=== PATIENT | female | born 1965 | race Hispanic/Latino ===

== ENCOUNTER → 2017-05-12 | Outpatient (CLI) | payer MEDICARE | END | disposition home or self-care (01) | LOC: SHCH 11:51 | PROVIDERS: ATTEND Internal Medicine Cardiovascular Disease | DX: I20.9 Angina pectoris, unspecified (principal) | CPT/HCPCS: 93306 ==

== ENCOUNTER → 2017-05-17 | Outpatient (CLI) | payer MEDICARE ==
[~2017-05-17] MED LIST: REGADENOSON 0.4 MG/5 ML PF SYG IVP SCH
== END | disposition home or self-care (01) ==
LOC: SHCH 08:23
PROVIDERS: ATTEND Internal Medicine Cardiovascular Disease
DX: I20.9 Angina pectoris, unspecified (principal)
CPT/HCPCS: 78452; 93017; 96374; A9500 ×2; J2785

== ENCOUNTER 2017-06-22 17:22 | Emergency (ER) | payer MEDICARE ==
[2017-06-22] MEDS ORDERED: ONDANSETRON HCL 4 MG/2 ML VIAL ONE (17:44)
[2017-06-22] MEDS ORDERED: FAMOTIDINE/PF 20 MG/2 ML VIAL IV ONE (17:45)
[2017-06-22 18:08] LABS: APPEARANCE,URINE Clear (CLEAR); BASOPHILS % (AUTO) 0.9 % (0.0-5.0); BILIRUBIN,URINE Negative (NEGATIVE); COLOR,URINE Yellow (YELLOW); EOSINOPHILS % (AUTO) 1.9 % (0.0-8.0); GLUCOSE, URINE (UA) >=1000 mg/dL (NEGATIVE); HEMATOCRIT 40.9 % (36-48); KETONES,URINE Negative (NEGATIVE); LEUKOCYTE ESTERASE ,URINE Negative (NEGATIVE); LYMPHOCYTES % (AUTO) 14.5 % (21.0-51.0); MEAN CORPUSCULAR HEMOGLOBIN 28.1 pg (27.0-33.0); MEAN CORPUSCULAR VOLUME 82.6 fL (79-99); NEUTROPHILS % (AUTO) 77.7 % (40.0-77.0); NITRATE,URINE Negative (NEGATIVE); OCCULT BLOOD,URINE Negative (NEGATIVE); PH,URINE 5.5 (5.0-8.0); PLATELET COUNT (AUTO) 337 K/uL (130-400); PROTEIN,URINE Negative (NEGATIVE); RED BLOOD CELL COUNT(AUTO) 4.95 MIL/uL (4.00-5.50); RED CELL DISTRIBUTION WIDTH 13.2 % (11.0-15.5); UROBILINOGEN,URINE 0.2 mg/dL (0.2-1.0); WHITE BLOOD COUNT (AUTO) 15.7 K/uL (4.8-10.8)
[2017-06-22 18:12] LABS: HCG,QUAL RESULT NEGATIVE (NEGATIVE)
[2017-06-22 18:26] LABS: CREATININE 0.7 mg/dL (0.5-1.5); POTASSIUM 4.2 mmol/L (3.5-5.1)
[2017-06-22 18:30] LABS: ALBUMIN 3.2 g/dL (3.5-5.0); BILIRUBIN,DIRECT 0.1 mg/dL (0.0-0.3); BILIRUBIN,TOTAL 0.3 mg/dL (0.2-1.0); TOTAL PROTEIN, SERUM 6.9 g/dL (6.0-8.3)
[2017-06-22 18:41] LABS: BACTERIA,URINE Rare /HPF (None Seen); RBC,URINE 0-1 /HPF (0-1); SQUAMOUS EPITHELIAL CELL,UR Rare /LPF (0-2); WBC,URINE 0-1 /HPF (0-1)
[2017-06-22] MEDS ORDERED: SODIUM CHLORIDE 0.9% 1000ML 1,000 ML IV ONE (18:49)
[2017-06-22] MEDS ORDERED: INSULIN HUMULIN R 100 UNIT/ML 3ML ONE (18:50)
== END 2017-06-22 20:28 | disposition home or self-care (01) ==
LOC: EDH 17:22
DX: A08.39 Other viral enteritis (principal); E08.65 Diabetes mellitus due to underlying condition with hyperglycemia; E78.5 Hyperlipidemia, unspecified; J45.909 Unspecified asthma, uncomplicated; D72.829 Elevated white blood cell count, unspecified
CPT/HCPCS: 36415; 80048; 80076; 81001; 81025; 82948; 83690; 85025; 96361; 96365; 96366; 96375; 99285; J1815; J2405; J3490; J7030

== ENCOUNTER 2021-08-12 03:22 | Emergency (ER) | payer MEDICARE ==
[~2021-08-12] VITALS: Ht 157.5 cm; Wt 96.6 kg
[2021-08-12 04:12] LABS: APPEARANCE,URINE Clear (CLEAR); BILIRUBIN,URINE Negative (NEGATIVE); COLOR,URINE Yellow (YELLOW); GLUCOSE, URINE (UA) >=1000 mg/dL (NEGATIVE); KETONES,URINE Negative (NEGATIVE); LEUKOCYTE ESTERASE ,URINE Negative (NEGATIVE); NITRATE,URINE Negative (NEGATIVE); OCCULT BLOOD,URINE Negative (NEGATIVE); PH,URINE 5.5 (5.0-8.0); PROTEIN,URINE Negative (NEGATIVE)
[2021-08-12 04:19] LABS: BASOPHILS % (AUTO) 0.4 % (0.0-5.0); EOSINOPHILS % (AUTO) 1.2 % (0.0-8.0); HEMATOCRIT 40.5 % (36-48); LYMPHOCYTES % (AUTO) 20.4 % (21.0-51.0); MEAN CORPUSCULAR HEMOGLOBIN 27.1 pg (27.0-33.0); MEAN CORPUSCULAR HGB CONC 32.1 g/dL (32.0-36.0); MEAN CORPUSCULAR VOLUME 84.6 fL (79-99); MONOCYTES % (AUTO) 7.3 % (3.0-13.0); NEUTROPHILS % (AUTO) 70.3 % (40.0-77.0); PLATELET COUNT (AUTO) 343 K/uL (130-400); RED BLOOD CELL COUNT(AUTO) 4.79 MIL/uL (4.00-5.50); RED CELL DISTRIBUTION WIDTH 12.8 % (11.0-15.5); WHITE BLOOD COUNT (AUTO) 11.8 K/uL (4.8-10.8)
[2021-08-12 04:28] LABS: BACTERIA,URINE None Seen /HPF (None Seen); RBC,URINE None Seen /HPF (0-1); SQUAMOUS EPITHELIAL CELL,UR Rare /HPF (0-2); WBC,URINE None Seen /HPF (0-1); YEAST,URINE BUDDING None Seen /HPF (None Seen)
[2021-08-12] MEDS ORDERED: ONDANSETRON 4MG INJ IVP ONE (04:30)
[2021-08-12] MEDS ORDERED: METOCLOPRAMIDE 10 MG/2 ML VIAL IVP ONE (04:30)
[2021-08-12] MEDS ORDERED: PANTOPRAZOLE 40 MG/VIAL IVP ONE (04:30)
[2021-08-12] MEDS ORDERED: FAMOTIDINE 20MG VIAL IV ONE (04:30)
[2021-08-12] MEDS ORDERED: 0.9%NACL 1000ML 1,000 ML IV ONE (04:30)
[2021-08-12 04:43] LABS: CREATININE 0.6 mg/dL (0.5-1.5); POTASSIUM 4.1 mmol/L (3.5-5.1)
[2021-08-12 04:47] LABS: ALBUMIN 3.7 g/dL (3.5-5.0); BILIRUBIN,TOTAL 0.3 mg/dL (0.2-1.0); TOTAL PROTEIN, SERUM 7.6 g/dL (6.0-8.3)
[2021-08-12 05:18] VITALS: BP 120/74
[2021-08-12] MEDS ORDERED: ONDA4TAB10 PO (05:24)
[2021-08-12] MEDS ORDERED: METO-296 PO (05:24)
[2021-08-12] MEDS ORDERED: PANT40TA PO (05:24)
[2021-08-12] MEDS ORDERED: DICY20TA2 PO (05:24)
[2021-08-12] MEDS ORDERED: LIDOCAINE HCL 2% VISCOUS 15 ML UDCUP ONE (05:26)
[2021-08-12] MEDS ORDERED: DiphenhydrAMINE HCL 50 MG/ML VIAL ONE (05:26)
[2021-08-12] MEDS ORDERED: MAG/ALUM/SIMETH 30 ML UDCUP ONE (05:26)
[2021-08-12] MEDS ORDERED: KETOROLAC 30MG VIAL (30MG/ML) ONE (05:27)
[2021-08-12] MEDS ORDERED: DiphenhydrAMINE HCL 50 MG/ML VIAL IV ONE (05:30)
[2021-08-12] MEDS ORDERED: LIDOCAINE HCL 2% VISCOUS 15 ML UDCUP PO ONE (05:30)
[2021-08-12] MEDS ORDERED: KETOROLAC 30MG VIAL (30MG/ML) IVP ONE (05:30)
[2021-08-12] MEDS ORDERED: MAG/ALUM/SIMETH 30 ML UDCUP PO ONE (05:30)
== END 2021-08-12 06:02 | disposition home or self-care (01) ==
LOC: EDH 03:22
DX: K80.20 Calculus of gallbladder without cholecystitis without obstruction (principal); R10.11 Right upper quadrant pain; R10.13 Epigastric pain; E86.9 Volume depletion, unspecified; E11.9 Type 2 diabetes mellitus without complications; E78.00 Pure hypercholesterolemia, unspecified; Z88.6 Allergy status to analgesic agent; Z79.899 Other long term (current) drug therapy; Z98.890 Other specified postprocedural states
CPT/HCPCS: 36415; 76705; 80053; 81001; 83690; 84484; 85025; 93005; 96361; 96374; 96375; 99285; C9113; J1200; J1885; J2405; J2765; J3490; J7030

== ENCOUNTER → 2023-01-05 | Outpatient (CLI) | payer MEDICARE ==
[~2023-01-05] MED LIST changes: +DAPA10TA PO; +DICY20TA2 PO; +ERGO500093 PO; +GABA300C PO; +METO-296 PO; +ONDA4TAB10 PO; +PANT40TA PO; -REGADENOSON 0.4 MG/5 ML PF SYG IVP SCH; +ROSU20TA73 PO; +SUMA25TA9 PO; +TIRZ5PEN SQ; +VITA1CAP85 PO
== END | disposition home or self-care (01) ==
LOC: RAH 09:14
PROVIDERS: ATTEND Family Medicine
DX: Z01.818 Encounter for other preprocedural examination (principal)
CPT/HCPCS: 71046

== ENCOUNTER → 2023-11-03 | Outpatient (CLI) | payer MEDICARE ==
[~2023-11-03] MED LIST changes: +ACET-2079 PO; +ASPI-1026 PO; +CYCL-309 PO; -DICY20TA2 PO; +GABA100C PO; -GABA300C PO; +LEVO750T68 PO; -METO-296 PO; -ONDA4TAB10 PO; -PANT40TA PO
== END | disposition home or self-care (01) ==
LOC: RAH 11:44
PROVIDERS: ATTEND Physician Assistant
DX: Z01.818 Encounter for other preprocedural examination (principal)
CPT/HCPCS: 71046

== ENCOUNTER → 2024-02-01 | Outpatient (CLI) | payer OTHER, MEDICARE ==
[~2024-02-01] MED LIST changes: +ALBU18HF7 IH; +ASCO500C18 PO
== END | disposition home or self-care (01) ==
LOC: RAH 12:07
PROVIDERS: ATTEND Family Medicine
DX: M47.26 Other spondylosis with radiculopathy, lumbar region (principal); M54.32 Sciatica, left side
CPT/HCPCS: 72100

== ENCOUNTER 2024-04-22 19:06 | Emergency (ER) | payer OTHER, MEDICARE ==
[~2024-04-22] VITALS: Ht 157.5 cm; Wt 97.2 kg
[~2024-04-22 19:06] MED LIST changes: -ASPI-1026 PO; -CYCL-309 PO; -DAPA10TA PO; -GABA100C PO; -LEVO750T68 PO; -ROSU20TA73 PO; +ROSU20TA98 PO; -VITA1CAP85 PO
--- NOTE | 2024-04-22 19:10 | NUR ---
COVID, FLU AND STREP SWABS COLLECTED AND SENT [facility] PROVIDED
--- NOTE | 2024-04-22 19:25 | ERN ---
ED Note History of Present Illness Stated Complaint: HEADACHE, BODYACHES,N/V/CHILLS, LEFT LOWER LEG ASH Chief Complaint: Multiple Complaints Time Seen by MD: 19:10 Time Seen by Midlevel: 19:15 Dictation: This 58-year-old female coming in for complaints of body aches, headache, left gluteal pain that radiates down her leg all started on . Denies having any fever, cough, congestion. Denies any medical or surgical history. Allergies: Coded Allergies: No Known Drug Allergies (Unverified Allergy, Unknown, 02/01/24) Home Meds Active Scripts Acetaminophen with Codeine (Acetaminophen-Cod #3 Tablet) 300 Mg-30 Mg Tablet, 1 EACH PO Q4HPRN PRN for PAIN for 7 Days, #42 TAB 0 Refills Prov:NATTY TUCKER MD 02/03/24 Reported Medications Albuterol Sulfate (Ventolin Hfa) 90 Mcg Hfa.aer.ad, 2 PUFF IH AD PRN for SHORTNESS OF BREATH, INHALER 02/03/24 Ergocalciferol (Vitamin D2) (Vitamin D2) 1,250 Mcg (17751 Unit) Capsule, 1250 MCG PO QWEEK, CAP 02/01/24 Ascorbic Acid (Vitamin C) 500 Mg Capsule, 500 MG PO DAILY, CAP 02/01/24 Rosuvastatin Calcium (Rosuvastatin Calcium) 20 Mg Tablet, 20 MG PO HS, TAB 01/07/23 Sumatriptan Succinate (Sumatriptan Succinate) 25 Mg Tablet, 25 MG PO HS, TAB 01/07/23 Tirzepatide (Mounjaro) 5 Mg/0.5 Ml Pen.injctr, 5 MG SQ QWEEK 01/07/23 Past Medical History Past Medical History: Asthma, Diabetes-Type II, High Cholesterol Surgical History: Hysterectomy, Tonsillectomy, Cholecystectomy, BTL Surgical History Other: HERNIA X 3, TUMOR RT SHOULDER, TOTAL KNEE BILATERAL Social History: Negative, Lives with family Review of System Dictation Constitutional: Negative for fever,chills, and weight loss complaining of body aches Eyes: Negative for injury, pain,redness, and discharge ENT: Negative for injury,pain or swelling Cardiovascular: Negative for chest pain, palpitations, and edema Respiratory: Negative for shortness of breath, cough, and wheezing, Abdomen/GI: Negative for abdominal pain, nausea, vomiting, diarrhea, and constipation Back: Negative for injury and pain : Negative for injury, bleeding and discharge MS/Extremity: Negative for injury and deformity left extremity pain lower leg Skin: Negative for rash, and discoloration Neuro: Negative for headache, weakness, numbness, tingling, and seizure Psych: Negative for suicide ideation, homicidal ideation, and hallucinations Review of Systems: was completed Initial Vital Sign VS Vital Signs Date Time Temp Pulse Resp B/P (MAP) Pulse Ox O2 Delivery O2 Flow Rate FiO2 04/22/24 19:08 97.9 86 16 125/77 97 Room Air 04/22/24 20:45 0 21 Physical Exam Dictation General: awake, alert, NAD Head/Face: Normocephalic, atraumatic Eyes: PERRL, EOMI, vision at baseline ENT: oral cavity clear, TMs clear, no signs of infection Neck: Trachea midline, supple, no nuchal rigidity Cardiovascular: RRR, normal S1/S2, No MRGs, no JVD Respiratory: CTAB, no respiratory distress, No rales or wheezes Abdomen: Soft, non-tender, non-distended, normal bowel sounds, no guarding or rebound. Skin: Warm, dry, normal turgor, no rash MS/Extremity: Pulses equal, no cyanosis, neurovascular intact, FROM Neuro: COAx4, GCS 15, strength 5/5, CN 2-12 intact, normal cerebellar exam, normal gait, Psych: Normal behavior, mood, and affect normal Results (Laboratory/Radiology) Laboratory/Radiology Laboratory Tests Test 04/22/24 19:10 04/22/24 20:36 Influenza Type A Antigen Negative For Type A Influenza Type B Antigen Negative For Type B SARS-CoV-2, RNA, NAAT NEGATIVE SARS CoV-2 Group A Streptococcus Rapid negative (NEGATIVE) Urine Color YELLOW (YELLOW) Urine Appearance CLOUDY (CLEAR) H Urine pH 5.5 (5.0-8.0) Urine Specific [place] 1.022 (1.001-1.031) Urine Protein 30 mg/dL (NEGATIVE) H Urine Glucose (UA) 30 mg/dL (NEGATIVE) H Urine Ketones 10 mg/dL (NEGATIVE) H Urine Occult Blood NEGATIVE (NEGATIVE) Urine Nitrate NEGATIVE (NEGATIVE) Urine Bilirubin NEGATIVE mg/dL (NEGATIVE) Urine Urobilinogen 2.0 mg/dL (0.2-1.0) H Urine Leukocyte Esterase 250 Favio/uL (NEGATIVE) H Urine RBC 6-10 /HPF (0-1) H Urine WBC 6-10 /HPF (0-1) H Urine Squamous Epithelial Cells MOD /HPF (0-2) Urine Non-Squamous Epithelial Cells 1 /HPF (0-2) Urine Bacteria None /HPF (None Seen) Urine Hyaline Casts 2-5 /LPF (0-1 /LPF) H Labs Reviewed?: Yes ED Course ED Course Orders Procedure Category Date Status Time Covid Rna Naat LAB 04/22/24 Complete 19:08 Influenza Type A & B, LAB 04/22/24 Complete Rapid 19:08 Rapid (Group A Strep) LAB 04/22/24 Complete 19:08 Urinalysis Profile LAB 04/22/24 Complete 19:08 Ketorolac PHA 04/22/24 Complete Tromethamine 15mg/Ml 19:30 Hydrocodone/Apap PHA 04/22/24 Complete 5/325 ([place] 5/325mg) 19:22 Lidocaine (Lidocaine PHA 04/22/24 Complete Patch 4%) 19:22 Culture Urine JEANE 04/22/24 In Process 21:08 Current Medications Medications (Trade) Dose Ordered Sig/Kaila Route PRN Reason Start Time Stop Time Status Last Admin Dose Admin Acetaminophen/ Hydrocodone Bitart (NORco 5/325MG) 1 tab ONCE STAT PO 04/22/24 19:22 04/22/24 19:23 DC 04/22/24 21:06 Ketorolac Tromethamine (toRADol) 15 mg ONCE ONCE IM 04/22/24 19:30 04/22/24 19:31 DC 04/22/24 21:07 Lidocaine (Lidocaine Patch 4%) 1 each ONCE STAT TP 04/22/24 19:22 04/22/24 19:23 DC 04/22/24 21:07 Vital Signs Date Time Temp Pulse Resp B/P (MAP) Pulse Ox O2 Delivery O2 Flow Rate FiO2 04/22/24 20:45 97.9 86 16 125/77 98 Room Air* 0 21 04/22/24 19:08 97.9 86 16 125/77 97 Room Air Medical Decision Making MDM MDM: This 58-year-old female coming in for complaints of body aches, headache, left gluteal pain that radiates down her leg all started on . Denies having any fever, cough, congestion. Denies any medical or surgical history. Patient's serologies negative, UA shows no evidence of urinary tract infection. Discussed findings with patient. Educated more than like she has a viral s yndrome and sciatica nerve pain. Educated that I will discharge him with pain medication and she needs to follow up with PCP in 1-2 days. Educated to return to the ER if symptoms worsen. Patient verbalized understanding, answered all questions. Differential diagnosis: Influenza, COVID, UTI, sciatica Rationale: Tests considered and ordered secondary to shared decision making inc lude: Previous outside records reviewed: Old ER visits. Risk of complication and/or morbidity or mortality of patient management: None Medications-Per medication reconciliation Need for hospitalization: Patient does not meet criteria for hospitalization. Need for emergency major/minor surgery: No There are no social concerns with this patient. Prescription drug management Prescriptions will include symptomatic care Patient's prior external medical records from other ER visits were reviewed by me as indicated. Prior testing and results from previous visits were reviewed. Prior tests were taken into account with medical decision making and resource utilization, independent historian/historians were used to obtain complete medical history. I independently interpreted the test that were performed, results were reviewed by me and considered findings on radiology if ordered. Medical management and examination interpretation discussions were had by me with other qualified healthcare professionals as indicated for the patient's care. DX & DISP Disposition: Discharge Departure Impression: Primary Impression: Viral syndrome Additional Impression: Sciatic leg pain Condition: Stable Scripts Naproxen (Naproxen) 500 Mg Tablet 1 TAB PO BID PRN for PAIN for 7 Days, #60 TAB 0 Refills Prov: FILIBERTO PLEITEZ LABOR RELATIONS WORKER 04/22/24 Lidocaine (Lidocaine) 5 % Adh..patch 1 PATCH TP DAILY for 7 Days, #7 PATCH 0 Refills Prov: PLEITEZFILIBERTO CURRY LABOR RELATIONS WORKER 04/22/24 Additional Instructions: Your swabs are negative for COVID and influenza. Urine shows not show any evidence of urinary tract infection. More than likely you have a viral syndrome, you can take [id number] symptomatic control. Tylenol for fever and pain. And they prescribed to you lidocaine patch and naproxen for your sciatica nerve pain. Follow up with PCP in 1-2 days, return to the ER symptoms worsen. Referrals: LEIGH ANN LANDRY M.D. (PCP) Time of Disposition: 21:26 I have reviewed the case, and I agree with, Diagnosis and Plan FILIBERTO PLEITEZ NP Apr 22, 2024 19:25
[2024-04-22 19:46] LABS: RAPID GROUP A STREP negative (NEGATIVE)
[2024-04-22 19:51] LABS: SARS-CoV-2, RNA, NAAT NEGATIVE SARS CoV-2 (NEGATIVE)
[2024-04-22 19:56] LABS: INFLUENZA TYPE A Negative For Type A (NEGATIVE); INFLUENZA TYPE B Negative For Type B (NEGATIVE)
[2024-04-22 20:45] VITALS: BP 125/77; PULSE 86; RESP 16; TEMP 97.8; O2SAT 98
[2024-04-22] MEDS: HYDROcodone/APAP 5/325 1 TAB TABLET PO STA (21:06)
[2024-04-22 21:07] LABS: ADD UA MICROSCOPIC YES; APPEARANCE,URINE CLOUDY (CLEAR); BILIRUBIN,URINE NEGATIVE (NEGATIVE); COLOR,URINE YELLOW (YELLOW); GLUCOSE, URINE (UA) 30 mg/dL (NEGATIVE); KETONES,URINE 10 mg/dL (NEGATIVE); LEUKOCYTE ESTERASE ,URINE 250 Leu/uL (NEGATIVE); NITRATE,URINE NEGATIVE (NEGATIVE); OCCULT BLOOD,URINE NEGATIVE (NEGATIVE); PH,URINE 5.5 (5.0-8.0); PROTEIN,URINE 30 mg/dL (NEGATIVE)
[2024-04-22] MEDS: LIDOCAINE 4% ADH..PATCH TP STA (21:07)
[2024-04-22] MEDS: ketOROlac 15MG/ML VIAL (15MG/ML) IM ONE (21:07)
[2024-04-22 21:12] LABS: MUCUS,URINE MANY LPF (None Seen); NON-SQUAMOUS EPITHELIAL CELL 1 /HPF (0-2); SQUAMOUS EPITHELIAL CELL,UR MOD /HPF (0-2)
[2024-04-22] MEDS ORDERED: LIDO700A30 TP (21:25)
[2024-04-22] MEDS ORDERED: NAPR-1023 PO (21:25)
[2024-04-22] MEDS: Solu-medROL 125MG VIAL IM STA (21:47)
== END 2024-04-22 21:55 | disposition home or self-care (01) ==
LOC: EDH 19:06
DX: B34.9 Viral infection, unspecified (principal); M54.32 Sciatica, left side; E11.9 Type 2 diabetes mellitus without complications; E78.00 Pure hypercholesterolemia, unspecified; J45.909 Unspecified asthma, uncomplicated; Z20.822 Contact with and (suspected) exposure to COVID-19; Z79.85 Long-term (current) use of injectable non-insulin antidiabetic drugs; Z90.49 Acquired absence of other specified parts of digestive tract; Z90.710 Acquired absence of both cervix and uterus
CPT/HCPCS: 99284; 87635; 87086; 87880; 87804 ×2; 81001; 96372 ×2; J2919; J1885

== ENCOUNTER 2024-06-08 14:38 | Emergency (ER) | payer OTHER, MEDICARE ==
[~2024-06-08] VITALS: Ht 157.5 cm; Wt 95.7 kg
[~2024-06-08 14:38] MED LIST changes: +LIDO700A30 TP; +NAPR-1023 PO
--- NOTE | 2024-06-08 14:51 | ERN ---
ED Note History of Present Illness Stated Complaint: NAUSEA,VOMITTING,MULTIPLE COMPLAINTS Chief Complaint: Chest Pain Time Seen by MD: 14:42 Dictation: PATIENT IS A 58-YEAR-OLD FEMALE COMING IN TODAY WITH COMPLAINTS OF LEFT FLANK PAIN THAT RADIATES TO HER PELVIC AREA WITH NAUSEA VOMITING ONSET TWO DAYS PRIOR TO ARRIVAL. SHE SAID SHE HAS HAD NO FEVER NO CHILLS NO DIARRHEA. ALSO STATES SHE IS HAVING SOME CHEST PAIN BUT DOES NOT RADIATE. PATIENT HAS A HISTORY OF DIABETES HYPERTENSION IS NOT COMPLIANT WITH HER BLOOD SUGAR CHECKS HOWEVER STATES HER LAST A1C WAS 9.5. SHE HAS NOT BEEN TO SEE HER PRIMARY CARE DOCTOR. ALSO SHE STATES SHE HAS NUMBNESS AND TINGLING TO HER BILATERAL UPPER EXTREMITIES. NIH IS 0, GAIT IS STEADY TO TRIAGE Allergies: Coded Allergies: No Known Drug Allergies (Unverified Allergy, Unknown, 02/01/24) Home Meds Active Scripts Amoxicillin/Potassium Clav (Amox Tr-K Clv 875-125 mg Tab) 875 Mg-125 Mg Tablet, 1 EACH PO BID for 7 Days, #14 TAB 0 Refills Prov:SERJIO MALHOTRA VACCINE CUSTOMER REPRESENTATIVE 06/08/24 Ibuprofen (Ibuprofen 800 mg Tab) 800 Mg Tab, 800 MG PO Q8H PRN for fever or pain, #30 TAB 0 Refills Prov:SERJIO MALHOTRA VACCINE CUSTOMER REPRESENTATIVE 06/08/24 Naproxen (Naproxen) 500 Mg Tablet, 1 TAB PO BID PRN for PAIN for 7 Days, #60 TAB 0 Refills Prov:FILIBERTO PLEITEZ VACCINE CUSTOMER REPRESENTATIVE 04/22/24 Lidocaine (Lidocaine) 5 % Adh..patch, 1 PATCH TP DAILY for 7 Days, #7 PATCH 0 Refills Prov:FILIBERTO PLEITEZ VACCINE CUSTOMER REPRESENTATIVE 04/22/24 Acetaminophen with Codeine (Acetaminophen-Cod #3 Tablet) 300 Mg-30 Mg Tablet, 1 EACH PO Q4HPRN PRN for PAIN for 7 Days, #42 TAB 0 Refills Prov:NATTY TUCKER MD 02/03/24 Reported Medications Albuterol Sulfate (Ventolin Hfa) 90 Mcg Hfa.aer.ad, 2 PUFF IH AD PRN for SHORTNESS OF BREATH, INHALER 02/03/24 Ergocalciferol (Vitamin D2) (Vitamin D2) 1,250 Mcg (93497 Unit) Capsule, 1250 MCG PO QWEEK, CAP 02/01/24 Ascorbic Acid (Vitamin C) 500 Mg Capsule, 500 MG PO DAILY, CAP 02/01/24 Rosuvastatin Calcium (Rosuvastatin Calcium) 20 Mg Tablet, 20 MG PO HS, TAB 01/07/23 Sumatriptan Succinate (Sumatriptan Succinate) 25 Mg Tablet, 25 MG PO HS, TAB 01/07/23 Tirzepatide (Mounjaro) 5 Mg/0.5 Ml Pen.injctr, 5 MG SQ QWEEK 01/07/23 Past Medical History Past Medical History: Asthma, Diabetes-Type II, High Cholesterol Surgical History: Hysterectomy, Tonsillectomy, Cholecystectomy, BTL Surgical History Other: HERNIA X 3, TUMOR RT SHOULDER, TOTAL KNEE BILATERAL Social History: Negative, Lives with family History: Not Applicable RN Note Reviewed/Agreed w/PFSH: Yes Review of System Dictation CONSTITUTIONAL: NEGATIVE EXCEPT FOR HPI HEAD/FACE: NEGATIVE EXCEPT FOR HPI EENT: NEGATIVE EXCEPT FOR HPI RESPIRATORY: NEGATIVE EXCEPT FOR HPI AND CHEST PAIN GASTROINTESTINAL/ABDOMINAL: NEGATIVE EXCEPT FOR HPI LEFT FLANK PAIN THAT RADIATES TO THE SUPRAPUBIC CARE WITH NAUSEA VOMITING GENITOURINARY: NEGATIVE EXCEPT FOR HPI MUSCULOSKELETAL: NEGATIVE EXCEPT FOR HPI INTEGUMENTARY: NEGATIVE EXCEPT FOR HPI NEUROLOGICAL/PSYCH: NEGATIVE EXCEPT FOR HPI HEMATOLOGIC/LYMPHATIC: NEGATIVE EXCEPT FOR HPI ALL SYSTEMS NEGATIVE, EXCEPT NOTED ABOVE. 13 POINT REVIEW OF SYSTEMS ASSESSED AND ALL NEGATIVE EXCEPT FOR ABOVE. Initial Vital Sign VS Vital Signs Date Time Temp Pulse Resp B/P (MAP) Pulse Ox O2 Delivery O2 Flow Rate FiO2 06/08/24 14:43 98.4 76 16 145/74 96 Room Air 0 06/08/24 17:43 21 Physical Exam Dictation VITAL SIGNS REVIEWED GENERAL APPEARANCE: ALERT, ORIENTED X 3, MODERATE ACUTE DISTRESS, WELL DEVELOPED, NOURISHED. OBESE HEAD AND FACE: NON-TRAUMATIC. EYES: PERRL, PINK CONJUNCTIVAS, EYELID NO TRAUMA, ANTERIOR CHAMBER WITH ARCUS SENILIS. EARS: PINNAS INTACT AND NO SIGNS OF TRAUMA OR ERYTHEMA EAR CANALS CLEAR AND NO DISCHARGE TM NO ERYTHEMA NOSE: NO DISCHARGE, NO BLEEDING. OROPHARYNX: MOUTH NORMAL, TONGUE PINK, PHARYNX CLEAR,NO ERYTHEMA, TONSILS NO EXUDATES, NO ABSCESSES NOTED, MUCOUS ME MBRANE MOIST NECK: SUPPLE, NON-TENDER, NO THYROMEGALY, NO MASSES, NO JVD, NO BRUITS BREAST:DEFERRED CHEST:NO TENDERNESS, NO CREPITUS, NO PARADOXICAL MOVEMENT, NO RETRACTIONS LUNGS:CLEAR, WELL-VENTILATED, SYMMETRIC, NO RALES, NO WHEEZING, NO RHONCHI, NO STRIDOR, GOOD BREATH SOUNDS BILATERALLY HEART: REGULAR RATE, REGULAR RHYTHM, NO MURMUR, NO GALLOPS VASCULAR: NO PERIPHERAL EDEMA, ABDOMEN: SOFT, POSITIVE BOWEL SOUNDS, NONDISTENDED, NO GUARDING, NONTENDER, NO REBOUND, NO MASSES NO HEPATOMEGALY, NO SPLENOMEGALY, NO ENCINAS'S SIGN, NO HERNIAS. NEGATIVE CVAT RECTAL: DEFERRED GENITAL: DEFERRED NEUROLOGICAL: NORMAL SPEECH, MOTOR FUNCTION INTACT, SENSORY FUNCTION INTACT MUSCULOSKELETAL: NECK NONTENDER, FULL RANGE OF MOTION, DIFFUSE LUMBOSACRAL PAIN TENDERNESS., FULL RANGE OF MOTION, EXTREMITIES: NONTENDER, FULL RANGE OF MOTION SKIN: COLOR PINK, DRY, NO TURGOR, NO RASH, NO LACERATIONS, NO ABRASIONS, NO CONTUSIONS. LYMPHATIC: DEFERRED Results (Laboratory/Radiology) Laboratory/Radiology Laboratory Tests Test 06/08/24 14:58 06/08/24 17:12 White Blood Count 12.9 K/uL (4.8-10.8) H Red Blood Count 4.63 MIL/uL (4.00-5.50) Hemoglobin 13.0 g/dL (12.0-16.0) Hematocrit 39.4 % (36-48) Mean Corpuscular Volume 85.1 fL (79-99) Mean Corpuscular Hemoglobin 28.1 pg (27.0-33.0) Mean Corpuscular Hemoglobin Concent 33.0 g/dL (32.0-36.0) Red Cell Distribution Width 13.0 % (11.0-15.5) Platelet Count 373 K/uL (130-400) Mean Platelet Volume 10.8 fL (7.5-10.5) H Immature Granulocyte % (Auto) 0.9 % (0-1) Neutrophils (%) (Auto) 77.8 % (40.0-77.0) H Lymphocytes (%) (Auto) 13.9 % (21.0-51.0) L Monocytes (%) (Auto) 6.1 % (3.0-13.0) Eosinophils (%) (Auto) 1.0 % (0.0-8.0) Basophils (%) (Auto) 0.3 % (0.0-5.0) Neutrophils # (Auto) 10.0 K/uL (1.8-7.7) H Lymphocytes # (Auto) 1.8 K/uL (1.0-4.8) Monocytes # (Auto) 0.8 K/uL (0.1-1.0) Eosinophils # (Auto) 0.13 K/uL (0.00-0.70) Basophils # (Auto) 0.04 K/uL (0.00-0.20) Absolute Immature Granulocyte (auto 0.11 K/uL (0-1) Nucleated Red Blood Cells 0.0 % (0.0-0.19) Sodium Level 138 mmol/L (136-145) Potassium Level 3.8 mmol/L (3.5-5.1) Chloride Level 101 mmol/L (101-111) Carbon Dioxide Level 35 mmol/L (21-32) H Blood Urea Nitrogen 13 mg/dL (7-18) Creatinine 0.7 mg/dL (0.5-1.0) Glomerular Filtration Rate Calc 101 mL/min (>90) Random Glucose 165 mg/dL (70-105) H Total Calcium 9.2 mg/dL (8.5-10.1) Troponin I High Sensitivity < 4 ng/L (4-50) L Lipase 39 U/L (16-77) Urine Color LIGHT-YELLOW (YELLOW) Urine Appearance CLOUDY (CLEAR) H Urine pH 8.0 (5.0-8.0) Urine Specific [place] 1.014 (1.001-1.031) Urine Protein 20 mg/dL (NEGATIVE) H Urine Glucose (UA) NEGATIVE mg/dL (NEGATIVE) Urine Ketones NEGATIVE mg/dL (NEGATIVE) Urine Occult Blood NEGATIVE (NEGATIVE) Urine Nitrate NEGATIVE (NEGATIVE) Urine Bilirubin NEGATIVE mg/dL (NEGATIVE) Urine Urobilinogen 2.0 mg/dL (0.2-1.0) H Urine Leukocyte Esterase 500 Favio/uL (NEGATIVE) H Urine RBC 2-5 /HPF (0-1) H Urine WBC TNTC /HPF (0-1) H Urine Squamous Epithelial Cells FEW /HPF (0-2) Urine Non-Squamous Epithelial Cells 2 /HPF (0-2) Urine Bacteria RARE /HPF (None Seen) CT ABDOMEN/PELVIS W/O CONTRAST HISTORY: Right flank pain COMPARISON: None TECHNIQUE: Multiple sequential axial images of the abdomen and pelvis were obtained from the dome of the diaphragm through symphysis pubis. Patient was not given contrast through intravenous route. Oral contrast was not given. FINDINGS: No pleural effusion is seen bilaterally. There is no evidence of parenchymal disease or pulmonary nodule of the visualized lower lungs. Degenerative changes of the thoracolumbar spine are present. The heart is not enlarged. Liver is enlarged measuring 19 cm. There fatty changes of the liver are noted. Postcholecystectomy changes are seen. There is periumbilical hernia with fat content. Adjacent fat stranding is seen may be related to incarcerated hernia There is diverticulosis. No bowel obstruction is seen. The liver, spleen, adrenal glands and pancreas are unremarkable. There is no evidence of hydronephrosis bilaterally. No evidence of renal stone is seen. Fecal. Is seen in the colon. There are normal size retroperitoneal and mesenteric lymph nodes. No ascites is seen. Atherosclerotic changes are present. Uterus has been removed. Pelvic sidewalls are symmetric bilaterally. Bladder is moderately distended with apparent wall thickening. IMPRESSION: 1. There is periumbilical hernia with fat content. Adjacent fat stranding is seen may be related to incarcerated hernia There is diverticulosis. No bowel obstruction is seen. Labs Reviewed?: Yes EKG: (+) NSR EKG Comment: EKG NORMAL SINUS RHYTHM/HEART RATE 73/AXIS NORMAL/NO ECTOPY ED Course ED Course Orders Procedure Category Date Status Time Cbc With Differential LAB 06/08/24 Complete 14:47 Troponin I High LAB 06/08/24 Complete Sensitivity 14:47 Urinalysis Profile LAB 06/08/24 Complete 14:47 12 Lead Ekg Tracing- EKG 06/08/24 Logged Technical 14:47 0.9%Nacl 1000ml (Ns PHA 06/08/24 Complete 1000ml) 15:00 Ketorolac PHA 06/08/24 Complete Tromethamine 30mg/Ml 15:00 Ondansetron 4mg Inj PHA 06/08/24 Complete (Zofran 4mg Inj) 15:00 Lipase LAB 06/08/24 Complete 14:47 Basic Metabolic Panel LAB 06/08/24 Complete 14:47 Morphine 4mg Syg PHA 06/08/24 Complete (Morphine 4mg Syg) 17:00 Ondansetron 4mg Inj PHA 06/08/24 Complete (Zofran 4mg Inj) 17:00 Ct Abdomen/Pelvis W/O CT 06/08/24 Resulted Contrast 16:47 Culture Urine JEANE 06/08/24 In Process 17:45 Ceftriaxone 1g Vial PHA 06/08/24 Complete (Rocephine 1g Inj) 18:00 Current Medications Medications (Trade) Dose Ordered Sig/Kaila Route PRN Reason Start Time Stop Time Status Last Admin Dose Admin Ceftriaxone Sodium (ROCEphine 1G INJ) 1 gm ONCE ONCE IVPB 06/08/24 18:00 06/08/24 18:01 DC Ketorolac Tromethamine (toRADol) 30 mg ONCE ONCE IVP 06/08/24 15:00 06/08/24 15:01 DC 06/08/24 16:09 Morphine Sulfate (morPHINE 4MG SYG) 4 mg ONCE ONCE IVP 06/08/24 17:00 06/08/24 17:01 DC 06/08/24 17:34 Ondansetron HCl (zoFRAN 4MG INJ) 4 mg ONCE ONCE IVP 06/08/24 15:00 06/08/24 15:01 DC 06/08/24 16:09 Ondansetron HCl (zoFRAN 4MG INJ) 4 mg ONCE ONCE IVP 06/08/24 17:00 06/08/24 17:01 DC 06/08/24 17:34 Sodium Chloride 1,000 ml @ 0 mls/hr ONCE ONCE IV 06/08/24 15:00 06/08/24 15:01 DC 06/08/24 16:09 Vital Signs Date Time Temp Pulse Resp B/P (MAP) Pulse Ox O2 Delivery O2 Flow Rate FiO2 06/08/24 17:43 71 11 127/57 98 Room Air* 0 21 06/08/24 14:43 98.4 76 16 145/74 96 Room Air 0 1854/SPOKE WITH general surgery and discussed CT findings. He states he was not necessarily concerned about this in light of the fact that there is no reducible mass nor is there focal abdominal tenderness. He recommends treating the urinary tract infection and referred to his office and he will be glad to discuss her her hernia. HEART Score Response (Comments) Value History: Low suspicion (0) 0 Age: 45-65yrs (+1) 1 Risk Factors: 1-2 risk factors (+1) 1 Initial Troponin: Normal limit (0) 0 Total 2 Medical Decision Making MDM MDM: Differential diagnosis: UTI/pyelonephritis/urolithiasis/ureteral colic/UTI/ electrolyte imbalance/dehydration Rationale: Tests considered and ordered secondary to shared decision making include: EKG/labs/radiology Previous outside records reviewed: Old ER visits. Risk of complication and/or morbidity or mortality of patient management: None Medications-Per medication reconciliation Need for hospitalization: Patient does not meet criteria for hospitalization. No Need for emergency major/minor surgery: No There are no social concerns with this patient. Prescription drug management Augmentin/ibuprofen, we will be referred to General surgery Prescriptions will include symptomatic care Patient's prior external medical records from other ER visits were reviewed by me as indicated. Prior testing and results from previous visits were reviewed. Prior tests were taken into account with medical decision making and resource utilization, independent historian/historians were used to obtain complete medical history. I independently interpreted the test that were performed, results were reviewed by me and considered findings on radiology if ordered. Medical management and examination interpretation discussions were had by me with other qualified healthcare professionals as indicated for the patient's care. DX & DISP Disposition: Discharge Departure Impression: Primary Impression: Acute urinary tract infection Additional Impressions: Uncontrolled diabetes mellitus, Atypical chest pain, Low back pain with sciatica Condition: Stable Scripts Amoxicillin/Potassium Clav (Amox Tr-K Clv 875-125 mg Tab) 875 Mg-125 Mg Tablet 1 EACH PO BID for 7 Days, #14 TAB 0 Refills Prov: SERJIO MALHOTRA VACCINE CUSTOMER REPRESENTATIVE 06/08/24 Ibuprofen (Ibuprofen 800 mg Tab) 800 Mg Tab 800 MG PO Q8H PRN for fever or pain, #30 TAB 0 Refills Prov: SERJIO MALHOTRA VACCINE CUSTOMER REPRESENTATIVE 06/08/24 Additional Instructions: Follow-up with primary care provider in 1 to 2 days. Take medications as directed here in the emergency room. Okay to continue home medications unless otherwise discussed during your visit in the emergency room today. Return to your nearest emergency room if symptoms worsen or if there is no improvement. Call 911 if you need immediate assistance. Take Tylenol or Motrin [id number] as needed and if no contraindications are present. Increase oral hydration. A wound culture or urine culture was ordered here in the em ergency room department please follow-up with primary care provider and advise them to get repeat ports from our facility. If you had any Tylor wrap/splints that were applied here, please do not remove them until you see your primary care or specialty. Take antibiotics as directed until gone., take ibuprofen with food as directed until gone. No lifting greater than 10 lb, follow up with the general surgeon in the next 2-3 days for your umbilical hernia. Also follow up with your primary care doctor next week for management of your low back pain and sciatica. Referrals: JESSENIA ROSA (PCP) TONG TO DO I have reviewed the case, and I agree with, Diagnosis and Plan SERJIO MALHOTRA NP Jun 08, 2024 14:51
[2024-06-08 15:28] LABS: BASOPHILS # (AUTO) 0.04 K/uL (0.00-0.20); BASOPHILS % (AUTO) 0.3 % (0.0-5.0); EOSINOPHILS # (AUTO) 0.13 K/uL (0.00-0.70); HEMATOCRIT 39.4 % (36-48); IMMATURE GRANULOCYTE ABSOLUTE 0.11 K/uL (0-1); LYMPHOCYTES # (AUTO) 1.8 K/uL (1.0-4.8); LYMPHOCYTES % (AUTO) 13.9 % (21.0-51.0); MEAN CORPUSCULAR HEMOGLOBIN 28.1 pg (27.0-33.0); MEAN CORPUSCULAR VOLUME 85.1 fL (79-99); MONOCYTES # (AUTO) 0.8 K/uL (0.1-1.0); MONOCYTES % (AUTO) 6.1 % (3.0-13.0); NEUTROPHILS % (AUTO) 77.8 % (40.0-77.0); PLATELET COUNT (AUTO) 373 K/uL (130-400); RED BLOOD CELL COUNT(AUTO) 4.63 MIL/uL (4.00-5.50); WHITE BLOOD COUNT (AUTO) 12.9 K/uL (4.8-10.8)
[2024-06-08 15:40] LABS: CREATININE 0.7 mg/dL (0.5-1.0); POTASSIUM 3.8 mmol/L (3.5-5.1)
[2024-06-08] MEDS: 0.9%NACL 1000ML 1,000 ML IV ONE (16:09)
[2024-06-08] MEDS: ketOROlac 30MG VIAL (30MG/ML) IVP ONE (16:09)
[2024-06-08] MEDS: ondanSETRON 4MG INJ IVP ONE ×2 (16:09→17:34)
[2024-06-08] MEDS: morPHINE 4 MG SYG IVP ONE (17:34)
[2024-06-08 17:42] LABS: APPEARANCE,URINE CLOUDY (CLEAR); BILIRUBIN,URINE NEGATIVE (NEGATIVE); COLOR,URINE LIGHT-YELLOW (YELLOW); GLUCOSE, URINE (UA) NEGATIVE (NEGATIVE); KETONES,URINE NEGATIVE (NEGATIVE); LEUKOCYTE ESTERASE ,URINE 500 Leu/uL (NEGATIVE); NITRATE,URINE NEGATIVE (NEGATIVE); OCCULT BLOOD,URINE NEGATIVE (NEGATIVE); PROTEIN,URINE 20 mg/dL (NEGATIVE)
[2024-06-08 17:45] LABS: ADD UA MICROSCOPIC YES
[2024-06-08 17:47] LABS: BACTERIA,URINE RARE /HPF (None Seen); MUCUS,URINE RARE LPF (None Seen); NON-SQUAMOUS EPITHELIAL CELL 2 /HPF (0-2); SQUAMOUS EPITHELIAL CELL,UR FEW /HPF (0-2); WBC,URINE TNTC /HPF (0-1)
--- NOTE | 2024-06-08 18:14 | HMCIMG ---
CT ABDOMEN/PELVIS W/O CONTRAST HISTORY: Right flank pain COMPARISON: None TECHNIQUE: Multiple sequential axial images of the abdomen and pelvis were obtained from the dome of the diaphragm through symphysis pubis. Patient was not given contrast through intravenous route. Oral contrast was not given. FINDINGS: No pleural effusion is seen bilaterally. There is no evidence of parenchymal disease or pulmonary nodule of the visualized lower lungs. Degenerative changes of the thoracolumbar spine are present. The heart is not enlarged. Liver is enlarged measuring 19 cm. There fatty changes of the liver are noted. Postcholecystectomy changes are seen. There is periumbilical hernia with fat content. Adjacent fat stranding is seen may be related to incarcerated hernia There is diverticulosis. No bowel obstruction is seen. The liver, spleen, adrenal glands and pancreas are unremarkable. There is no evidence of hydronephrosis bilaterally. No evidence of renal stone is seen. Fecal. Is seen in the colon. There are normal size retroperitoneal and mesenteric lymph nodes. No ascites is seen. Atherosclerotic changes are present. Uterus has been removed. Pelvic sidewalls are symmetric bilaterally. Bladder is moderately distended with apparent wall thickening. IMPRESSION: 1. There is periumbilical hernia with fat content. Adjacent fat stranding is seen may be related to incarcerated hernia There is diverticulosis. No bowel obstruction is seen. CT was performed with one or more following dose reduction techniques: automated exposure control, adjustment of the mA and kv according to patient's size, or use of a iterative reconstruction technique.
[2024-06-08] MEDS ORDERED: AMOX1TAB16 PO (18:58)
[2024-06-08] MEDS ORDERED: IBUP-2077 PO (18:58)
--- NOTE | 2024-06-08 19:00 | NUR ---
ASSUMED CARE AT THIS TIME.
--- NOTE | 2024-06-08 19:05 | NUR ---
Nicole foote in [facility] - 06/08/24 at 1936 by [id number] KRISS
[2024-06-08] MEDS: cefTRIAXone 1G VIAL IVPB ONE (19:14)
[2024-06-08 19:27] VITALS: BP 128/63; PULSE 78; RESP 20; TEMP 98.8; O2SAT 96
--- NOTE | 2024-06-08 22:19 | EKG ---
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
== END 2024-06-08 19:38 | disposition home or self-care (01) ==
LOC: EDH 14:38
DX: N39.0 Urinary tract infection, site not specified (principal); E11.65 Type 2 diabetes mellitus with hyperglycemia; E78.00 Pure hypercholesterolemia, unspecified; R07.89 Other chest pain; J45.909 Unspecified asthma, uncomplicated; M54.40 Lumbago with sciatica, unspecified side; Z79.85 Long-term (current) use of injectable non-insulin antidiabetic drugs; Z90.49 Acquired absence of other specified parts of digestive tract; Z90.710 Acquired absence of both cervix and uterus
CPT/HCPCS: 99285; 74176; 96374; 96375; 96361; 84484; 80048; 83690; 85025; 87086 ×2; 87186; 81001; 36415; 96376; 93005; J1885; J7030; J0696; J2405 ×2; J2270